=== PATIENT | female | born 1985 | race Caucasian/White ===

== ENCOUNTER 2019-10-27 19:40 | Emergency (ER) | payer MEDICAID, OTHER ==
[~2019-10-27] VITALS: Ht 162.6 cm; Wt 69.9 kg
[2019-10-27 20:51] VITALS: BP 153/120
== END 2019-10-27 21:31 | disposition home or self-care (01) ==
LOC: ER 19:40
DX: S92.592A Other fracture of left lesser toe(s), initial encounter for closed fracture (principal); W22.8XXA Striking against or struck by other objects, initial encounter; Y93.89 Activity, other specified; Y92.89 Other specified places as the place of occurrence of the external cause; Y99.8 Other external cause status
CPT/HCPCS: 73630